=== PATIENT | male | born 1965 | race Caucasian/White ===

== ENCOUNTER 2016-07-16 16:10 | Emergency (ER) | payer OTHER ==
[2016-07-16 17:16] LABS: BASOPHIL 0.2 % (0-2); EOSINOPHIL 4.7 % (0-5); HCT 40.2 % (42.0-52.0); HGB 14.2 g/dl (13.2-18.0); LYMPHOCYTE 6.7 % (15-48); MCH 30.6 pg (25.0-31.0); MCHC 35.3 g/dL (32.0-36.0); MCV 86.6 fL (78.0-100.0); MONOCYTE 7.7 % (0-12); MPV 9.9 fL (6.0-9.5); NEUTROPHIL 80.7 % (41-80); PLT 188 K/uL (150-400); RBC 4.64 M/uL (4.70-6.00); RDW 16.1 % (11.5-14.0); WBC 11.6 K/uL (4.0-10.5)
[2016-07-16 17:19] LABS: BILIRUBIN 1+ mg/dL (NEGATIVE); BLOOD NEGATIVE Ery/uL (NEGATIVE); CLARITY HAZY (CLEAR); COLOR YELLOW (YELLOW); GLUCOSE (U) NORMAL (NORMAL); KETONE (U) NEGATIVE (NEGATIVE); LEUKOCYTES 1+ Leu/uL (NEGATIVE); NITRITE NEGATIVE (NEGATIVE); PROTEIN NEGATIVE (NEGATIVE); pH 5.5 (5.0-9.0)
[2016-07-16 17:20] LABS: URINARY RBC RARE; URINARY WBC RARE
[2016-07-16 17:21] LABS: AMORPHOUS URATES CRYSTALS TRACE; MUCOUS MODERATE
[2016-07-16 17:34] LABS: CREATININE 1.7 mg/dL (0.7-1.2); POTASSIUM 5.2 mmol/L (3.5-5.1)
== END 2016-07-16 18:30 | disposition home or self-care (01) ==
LOC: FER 16:10
PROVIDERS: Emergency Medicine
DX: S51.012A Laceration without foreign body of left elbow, initial encounter (principal); S00.93XA Contusion of unspecified part of head, initial encounter; N18.9 Chronic kidney disease, unspecified; I50.9 Heart failure, unspecified; Z86.73 Personal history of transient ischemic attack (TIA), and cerebral infarction without residual deficits; Z95.811 Presence of heart assist device; W19.XXXA Unspecified fall, initial encounter; Y92.009 Unspecified place in unspecified non-institutional (private) residence as the place of occurrence of the external cause
CPT/HCPCS: 36415; 70450; 80048; 81001; 84484; 85025; 93005